=== PATIENT | male | born 1945 | race Caucasian/White ===

== ENCOUNTER 2016-06-23 09:31 | Emergency (ER) | payer MEDICARE, MEDICAID ==
[~2016-06-23] VITALS: Ht 180.3 cm; Wt 2.6 kg
[~2016-06-23 09:31] MED LIST: ALB5IS NEB; AML5T PO; BUDE160A3 INH; Doxycycline Monohydrate PO; ESCI5TAB PO; Ipratropium Bromide NEB; LAC30LQ PO; NOR5T PO; QUET300T14 PO; TAM04C PO
[2016-06-23 10:10] VITALS: BP 159/104
[2016-06-23 10:32] LABS: Urine Bilirubin Negative (Negative); Urine Color Yellow (Yellow); Urine Glucose Normal (Normal); Urine Nitrite Negative (Negative); Urine RBC 178 /hpf (0 - 3); Urine Squamous Epithelial Cell FEW /hpf (<5); Urine Urobilinogen Normal (Negative)
[2016-06-23 10:33] LABS: Urine Blood 2+ /uL (Negative); Urine Ketone 2+ (Negative)
== END 2016-06-23 11:26 | disposition home or self-care (01) ==
LOC: ER 09:31
DX: D29.1 Benign neoplasm of prostate (principal); M19.90 Unspecified osteoarthritis, unspecified site; J44.9 Chronic obstructive pulmonary disease, unspecified; I10 Essential (primary) hypertension; I25.10 Atherosclerotic heart disease of native coronary artery without angina pectoris; Z88.0 Allergy status to penicillin; F17.210 Nicotine dependence, cigarettes, uncomplicated; F12.10 Cannabis abuse, uncomplicated
CPT/HCPCS: 51702; 81001

== ENCOUNTER 2016-06-29 14:47 | Inpatient (IN) | payer MEDICARE, MEDICAID ==
[~2016-06-29] VITALS: Ht 180.3 cm; Wt 83.2 kg
[~2016-06-29 14:47] MED LIST changes: -Doxycycline Monohydrate PO
[2016-06-29 15:30] LABS: Basophils # (auto) 0 uL; Basophils % (auto) 0.2 % (0.0-2.0); Eosinophils # (auto) 0.3 uL; Eosinophils % (auto) 2.2 % (0.0-7.0); Hematocrit 46.9 % (41.0-53.0); Hemoglobin 15.5 g/dL (13.5-17.5); Lymphocytes # (auto) 2.3 uL; Lymphocytes % (auto) 18.2 % (10.0-50.0); Mean Corpuscular Hemoglobin 30.3 pg (28.0-32.0); Mean Corpuscular Volume 91.6 fL (80.0-100.0); Mean Platelet Volume 7.9 fL (7.4-10.4); Monocytes # (auto) 0.5 uL; Monocytes % (auto) 3.9 % (0.0-12.0); Neutrophils # (auto) 9.4 uL; Neutrophils % (auto) 75.5 % (37.0-80.0); Platelet Count (auto) 377 10^3/uL (140-450); Red Cell Distribution Width 15.1 % (11.6-16.0); White Blood Cell 12.5 10^3/uL (4.4-10.8)
[2016-06-29 15:54] LABS: Partial Thromboplastin Time 31.4 sec (22.64-33.71)
[2016-06-29 16:02] LABS: INR 1.28 (0.9-1.15); Prothrombin Time 13.2 sec (9.37-12.3)
[2016-06-29 16:18] LABS: Albumin 3.8 g/dL (3.4-5.0); Anion Gap 11 (5-15); Blood Urea Nitrogen 20 mg/dL (7-18); Calcium 8.5 mg/dL (8.5-10.1); Carbon Dioxide 25 mmol/L (21-32); Chloride 103 mmol/L (98-107); Glucose 105 mg/dL (74-106); Potassium 4.1 mmol/L (3.5-5.1); Sodium 139 mmol/L (136-145)
[2016-06-29 16:20] LABS: BUN/Creatinine Ratio 21.7; GFR African American 105 mL/min; GFR Non-African American 86 mL/min
[2016-06-29 16:28] LABS: Alkaline Phosphatase 98 U/L (45-117); Aspartate Aminotransferase 27 U/L (15-37); Bilirubin, Total 0.6 mg/dL (0.2-1.0); Total Protein 7.3 g/dL (6.4-8.2)
[2016-06-29] MEDS ORDERED: ACETAMINOPHEN 325 MG TAB PO ONE (17:30)
[2016-06-29] MEDS ORDERED: ENOXAPARIN SOD 100 MG/1 ML SYRINGE SC ONE (17:30)
[2016-06-29] MEDS ORDERED: ACETAMINOPHEN 325 MG TAB PO PRN (20:15)
[2016-06-29] MEDS ORDERED: FUROSEMIDE 40 MG/4 ML VIAL IV ONE (20:15)
[2016-06-29] MEDS ORDERED: LORazepam 2MG/ML-1ML VIAL IV PRN (20:15)
[2016-06-29] MEDS ORDERED: methylPREDNISolone SOD SUCC 125 MG/2 ML VL IV ONE (20:15)
[2016-06-29] MEDS ORDERED: LACTULOSE 20Gm/30ML SOLN PO PRN (20:15)
[2016-06-29] MEDS ORDERED: ONDANSETRON HCL 4 MG/2 ML VIAL IV PRN (20:15)
[2016-06-29] MEDS ORDERED: ALBUTEROL SULF 2.5 MG/0.5ML(0.5%) NEB SOLN NEB PRN (20:15)
[2016-06-29] MEDS ORDERED: DOCUSATE SOD 100 MG CAP PO PRN (20:15)
[2016-06-29] MEDS ORDERED: METOCLOPRAMIDE HCL 5MG/ml INJ 2ml VIAL IV PRN (20:15)
[2016-06-29] MEDS ORDERED: ALUM & MAG HYDROX-SIMETH LIQ(MAALOX) 30 ML PO PRN (20:15)
[2016-06-29] MEDS ORDERED: MORPHINE SULF INJ 2 MG/ML SYRINGE 1ML IV PRN (20:15)
[2016-06-29] MEDS ORDERED: hydrALAZINE HCL 20 MG/ML VL IV PRN (20:15)
[2016-06-29] MEDS ORDERED: IBUPROFEN 600 MG TAB PO ONE (20:15)
[2016-06-29] MEDS ORDERED: NITROGLYCERIN 0.4 MG SL TAB SL PRN (20:15)
[2016-06-29 20:44] VITALS: BP 160/92
[2016-06-29] MEDS: MORPHINE SULF INJ 2 MG/ML SYRINGE 1ML IV PRN (20:53)
[2016-06-29] MEDS: TAMSULOSIN HYDROCHLORIDE 0.4 MG CAP PO SCH (21:02)
[2016-06-29] MEDS: CARVEDILOL 3.125 MG TAB PO SCH ×3 (21:02→22:15)
[2016-06-29] MEDS: QUEtiapine FUMARATE 100 MG TAB PO SCH (22:00)
[2016-06-29] MEDS: ENOXAPARIN SOD 80 MG/0.8ML SYRINGE SC SCH (22:00)
[2016-06-29] MEDS: BUDESONIDE FORMOTEROL FUMARATE INH SCH (22:00)
[2016-06-30] MEDS: CARVEDILOL 3.125 MG TAB PO SCH (00:16)
[2016-06-30] MEDS: MORPHINE SULF INJ 2 MG/ML SYRINGE 1ML IV PRN ×2 (03:57→08:13)
[2016-06-30 04:05] LABS: Basophils # (auto) 0 uL; Basophils % (auto) 0.1 % (0.0-2.0); Eosinophils # (auto) 0 uL; Eosinophils % (auto) 0.1 % (0.0-7.0); Hematocrit 46.3 % (41.0-53.0); Hemoglobin 15.4 g/dL (13.5-17.5); Lymphocytes # (auto) 0.9 uL; Lymphocytes % (auto) 11.9 % (10.0-50.0); Mean Corpuscular Hemoglobin 30.6 pg (28.0-32.0); Mean Corpuscular Hgb Conc. 33.3 g/dL (32.0-36.0); Mean Corpuscular Volume 91.9 fL (80.0-100.0); Mean Platelet Volume 8.2 fL (7.4-10.4); Monocytes # (auto) 0 uL; Monocytes % (auto) 0.4 % (0.0-12.0); Neutrophils # (auto) 6.4 uL; Neutrophils % (auto) 87.5 % (37.0-80.0); Platelet Count (auto) 345 10^3/uL (140-450); White Blood Cell 7.3 10^3/uL (4.4-10.8)
[2016-06-30 04:38] LABS: Albumin 3.7 g/dL (3.4-5.0); BUN/Creatinine Ratio 26.5; Calcium 8.5 mg/dL (8.5-10.1); Potassium 4.2 mmol/L (3.5-5.1)
[2016-06-30 04:41] LABS: Bilirubin, Total 0.6 mg/dL (0.2-1.0); Total Protein 7.1 g/dL (6.4-8.2)
[2016-06-30] MEDS: methylPREDNISolone SOD SUCC 40 MG/ML VL IV SCH ×4 (06:13→19:18)
[2016-06-30] MEDS: CITALOPRAM HYDROBR 20 MG TAB PO SCH (10:00)
[2016-06-30] MEDS: amLODIPine BESYLATE 5 MG TAB PO SCH (10:00)
[2016-06-30] MEDS: BUDESONIDE FORMOTEROL FUMARATE INH SCH (10:00)
[2016-06-30] MEDS: ENOXAPARIN SOD 80 MG/0.8ML SYRINGE SC SCH ×2 (10:01→22:09)
[2016-06-30] MEDS ORDERED: IPRATROPIUM BROM 0.5 MG/2.5ML INH SOL NEB PRN ×2 (10:30)
[2016-06-30] MEDS ORDERED: ALBUTEROL SULF 2.5 MG/0.5ML(0.5%) NEB SOLN NEB PRN (10:30)
[2016-06-30] MEDS ORDERED: ONDANSETRON HCL 4 MG/2 ML VIAL ONE (10:48)
[2016-06-30] MEDS: HYDROmorphone HCL 2 MG/ML VL IV PRN ×3 (10:48→20:27)
[2016-06-30] MEDS: ALBUTEROL SULF 2.5 MG/0.5ML(0.5%) NEB SOLN NEB SCH (18:00)
[2016-06-30 18:21] VITALS: BP 146/98
[2016-06-30] MEDS: TAMSULOSIN HYDROCHLORIDE 0.4 MG CAP PO SCH (19:18)
[2016-06-30 21:34] VITALS: BP 143/82
[2016-06-30] MEDS: BUDESONIDE (INHALATION) 0.5 MG/2 ML NEB NEB SCH (22:00)
[2016-06-30] MEDS: QUEtiapine FUMARATE 100 MG TAB PO SCH (22:10)
[2016-07-01] MEDS: methylPREDNISolone SOD SUCC 40 MG/ML VL IV SCH ×2 (00:09→06:01)
[2016-07-01] MEDS: HYDROmorphone HCL 2 MG/ML VL IV PRN ×2 (04:29→08:51)
[2016-07-01 05:00] VITALS: BP 142/81
[2016-07-01 08:00] VITALS: BP 150/93
[2016-07-01] MEDS ORDERED: MORPHINE SULF INJ 2 MG/ML SYRINGE 1ML IV PRN (08:00)
[2016-07-01] MEDS ORDERED: NITROGLYCERIN 0.4 MG SL TAB SL PRN ×2 (08:00)
[2016-07-01] MEDS: CITALOPRAM HYDROBR 20 MG TAB PO SCH (08:51)
[2016-07-01] MEDS: ENOXAPARIN SOD 80 MG/0.8ML SYRINGE SC SCH (08:52)
[2016-07-01] MEDS: amLODIPine BESYLATE 5 MG TAB PO SCH (08:52)
[2016-07-01] MEDS: CARVEDILOL 3.125 MG TAB PO SCH ×2 (08:53→22:16)
[2016-07-01] MEDS ORDERED: amLODIPine BESYLATE 5 MG TAB PO ONE (10:30)
[2016-07-01] MEDS ORDERED: HYDROcodone-ACET 5/325MG TAB PO PRN (10:30)
[2016-07-01] MEDS: APIXABAN 5 MG TAB PO SCH ×2 (11:41→22:16)
[2016-07-01 11:51] VITALS: BP 148/80
[2016-07-01] MEDS: BUDESONIDE (INHALATION) 0.5 MG/2 ML NEB NEB SCH ×2 (12:08→19:20)
[2016-07-01] MEDS: ALBUTEROL SULF 2.5 MG/0.5ML(0.5%) NEB SOLN NEB SCH ×3 (12:08→19:19)
[2016-07-01] MEDS: HYDROcodone-ACET 10/325MG TAB PO PRN ×2 (13:06→18:23)
[2016-07-01] MEDS ORDERED: SODIUM CHLOR 0.9% PF (SALINE LOCK) 10ML VIAL IV SCH (14:00)
[2016-07-01 16:44] VITALS: BP 153/89
[2016-07-01] MEDS: TAMSULOSIN HYDROCHLORIDE 0.4 MG CAP PO SCH (18:23)
[2016-07-01 19:38] LABS: Basophils # (auto) 0 uL; Eosinophils # (auto) 0 uL; Hematocrit 44.4 % (41.0-53.0); Hemoglobin 14.6 g/dL (13.5-17.5); Lymphocytes # (auto) 1.9 uL; Lymphocytes % (auto) 12.1 % (10.0-50.0); Mean Corpuscular Hemoglobin 30.1 pg (28.0-32.0); Mean Corpuscular Volume 91.5 fL (80.0-100.0); Mean Platelet Volume 8.5 fL (7.4-10.4); Monocytes # (auto) 0.8 uL; Neutrophils # (auto) 13.3 uL; Neutrophils % (auto) 82.9 % (37.0-80.0); Platelet Count (auto) 375 10^3/uL (140-450); Red Cell Distribution Width 14.9 % (11.6-16.0)
[2016-07-01 20:04] LABS: Albumin 3.7 g/dL (3.4-5.0); Calcium 8.5 mg/dL (8.5-10.1); Potassium 4.4 mmol/L (3.5-5.1)
[2016-07-01 20:07] LABS: Bilirubin, Total 0.5 mg/dL (0.2-1.0)
[2016-07-01 21:33] VITALS: BP 142/86
[2016-07-01] MEDS: QUEtiapine FUMARATE 100 MG TAB PO SCH (22:16)
[2016-07-02 04:34] VITALS: BP 148/75
[2016-07-02] MEDS: HYDROcodone-ACET 10/325MG TAB PO PRN ×3 (05:45→18:31)
[2016-07-02] MEDS: ALBUTEROL SULF 2.5 MG/0.5ML(0.5%) NEB SOLN NEB SCH ×3 (06:42→19:25)
[2016-07-02] MEDS: BUDESONIDE (INHALATION) 0.5 MG/2 ML NEB NEB SCH ×2 (06:43→19:26)
[2016-07-02 09:42] VITALS: BP 144/78
[2016-07-02] MEDS: predniSONE 20 MG TAB PO SCH (09:57)
[2016-07-02] MEDS: CITALOPRAM HYDROBR 20 MG TAB PO SCH (09:57)
[2016-07-02] MEDS: APIXABAN 5 MG TAB PO SCH ×2 (09:57→22:07)
[2016-07-02] MEDS: CARVEDILOL 3.125 MG TAB PO SCH ×2 (09:58→22:07)
[2016-07-02] MEDS: amLODIPine BESYLATE 5 MG TAB PO SCH (09:58)
[2016-07-02] MEDS ORDERED: LEVOFLOXACIN 500MG 100 ML IV ONE (11:15)
[2016-07-02 12:51] VITALS: BP 138/92
[2016-07-02] MEDS ORDERED: LEVOFLOXACIN 500 MG TAB PO ONE (14:15)
[2016-07-02 16:41] VITALS: BP 150/87
[2016-07-02] MEDS: TAMSULOSIN HYDROCHLORIDE 0.4 MG CAP PO SCH (17:55)
[2016-07-02 18:00] VITALS: BP 159/74
[2016-07-02 21:16] VITALS: BP 150/87
[2016-07-02] MEDS: QUEtiapine FUMARATE 100 MG TAB PO SCH (22:06)
[2016-07-03] MEDS: HYDROcodone-ACET 10/325MG TAB PO PRN ×2 (03:04→09:06)
[2016-07-03 05:12] VITALS: BP 131/78
[2016-07-03 05:34] LABS: Basophils # (auto) 0 uL; Basophils % (auto) 0.2 % (0.0-2.0); Eosinophils # (auto) 0.1 uL; Eosinophils % (auto) 0.6 % (0.0-7.0); Hematocrit 42.5 % (41.0-53.0); Hemoglobin 13.8 g/dL (13.5-17.5); Lymphocytes # (auto) 2.9 uL; Lymphocytes % (auto) 25.7 % (10.0-50.0); Mean Corpuscular Hemoglobin 30.3 pg (28.0-32.0); Mean Corpuscular Hgb Conc. 32.4 g/dL (32.0-36.0); Mean Corpuscular Volume 93.6 fL (80.0-100.0); Mean Platelet Volume 8.2 fL (7.4-10.4); Monocytes % (auto) 9.1 % (0.0-12.0); Neutrophils # (auto) 7.2 uL; Neutrophils % (auto) 64.4 % (37.0-80.0); Platelet Count (auto) 219 10^3/uL (140-450); Red Cell Distribution Width 15.1 % (11.6-16.0); White Blood Cell 11.3 10^3/uL (4.4-10.8)
[2016-07-03 05:42] LABS: Albumin 2.9 g/dL (3.4-5.0); BUN/Creatinine Ratio 32.8; Calcium 8.2 mg/dL (8.5-10.1); Potassium 4.4 mmol/L (3.5-5.1)
[2016-07-03 05:45] LABS: Bilirubin, Total 0.3 mg/dL (0.2-1.0); Total Protein 5.8 g/dL (6.4-8.2)
[2016-07-03] MEDS: ALBUTEROL SULF 2.5 MG/0.5ML(0.5%) NEB SOLN NEB SCH ×3 (06:00→10:49)
[2016-07-03] MEDS: BUDESONIDE (INHALATION) 0.5 MG/2 ML NEB NEB SCH (06:00)
[2016-07-03 07:38] VITALS: BP 114/70
[2016-07-03 07:45] VITALS: BP 114/70
[2016-07-03] MEDS: predniSONE 20 MG TAB PO SCH (09:07)
[2016-07-03] MEDS: CITALOPRAM HYDROBR 20 MG TAB PO SCH (09:08)
[2016-07-03] MEDS: APIXABAN 5 MG TAB PO SCH (09:09)
[2016-07-03] MEDS: amLODIPine BESYLATE 5 MG TAB PO SCH (09:12)
[2016-07-03] MEDS: CARVEDILOL 3.125 MG TAB PO SCH (09:12)
[2016-07-03] MEDS ORDERED: LEVOFLOXACIN 500 MG TAB PO SCH (10:00)
[2016-07-03] MEDS ORDERED: LEVOFLOXACIN 500MG 100 ML IV SCH (10:00)
[2016-07-03 11:58] VITALS: BP 145/90
[2016-07-03 12:54] VITALS: BP 145/90
[2016-07-08] MEDS ORDERED: APIXABAN 5 MG TAB PO SCH (10:00)
== END 2016-07-03 15:10 | disposition home or self-care (01) | DRG 140 ==
LOC: ER 14:47 → EDBD 14:47 → TELE 14:48 → TELE-EAST 06-30 17:47
PROVIDERS: ADMIT Internal Medicine; ATTEND Internal Medicine
DX: J44.1 Chronic obstructive pulmonary disease with (acute) exacerbation (principal); J96.20 Acute and chronic respiratory failure, unspecified whether with hypoxia or hypercapnia; I26.99 Other pulmonary embolism without acute cor pulmonale; M19.90 Unspecified osteoarthritis, unspecified site; N40.0 Benign prostatic hyperplasia without lower urinary tract symptoms; F17.210 Nicotine dependence, cigarettes, uncomplicated; G89.29 Other chronic pain; I15.8 Other secondary hypertension; I25.10 Atherosclerotic heart disease of native coronary artery without angina pectoris; I25.2 Old myocardial infarction; Z79.01 Long term (current) use of anticoagulants; Z86.711 Personal history of pulmonary embolism; Z91.19 Patient's noncompliance with other medical treatment and regimen; Z88.0 Allergy status to penicillin; Z90.49 Acquired absence of other specified parts of digestive tract
CPT/HCPCS: 36415; 71020; 80053; 84484; 85025; 85379; 85610; 85730; 87081; 93005; 94640; 96372; 96374; 96375; J1956; J2405

== ENCOUNTER 2016-07-05 12:37 | Emergency (ER) | payer MEDICARE, MEDICAID ==
[~2016-07-05] VITALS: Ht 180.3 cm; Wt 80.7 kg
[2016-07-05 13:26] LABS: Basophils # (auto) 0 uL; Basophils % (auto) 0.2 % (0.0-2.0); Eosinophils # (auto) 0.4 uL; Eosinophils % (auto) 2.3 % (0.0-7.0); Hematocrit 46.1 % (41.0-53.0); Hemoglobin 15.4 g/dL (13.5-17.5); Lymphocytes # (auto) 2.6 uL; Lymphocytes % (auto) 16.7 % (10.0-50.0); Mean Corpuscular Hemoglobin 30.4 pg (28.0-32.0); Mean Corpuscular Hgb Conc. 33.3 g/dL (32.0-36.0); Mean Corpuscular Volume 91.3 fL (80.0-100.0); Monocytes # (auto) 0.6 uL; Monocytes % (auto) 3.9 % (0.0-12.0); Neutrophils % (auto) 76.9 % (37.0-80.0); Platelet Count (auto) 362 10^3/uL (140-450); White Blood Cell 15.5 10^3/uL (4.4-10.8)
[2016-07-05 13:57] LABS: Albumin 3.9 g/dL (3.4-5.0); Alkaline Phosphatase 90 U/L (45-117); Anion Gap 12 (5-15); Aspartate Aminotransferase 25 U/L (15-37); BUN/Creatinine Ratio 34.7; Bilirubin, Total 0.4 mg/dL (0.2-1.0); Blood Urea Nitrogen 26 mg/dL (7-18); Calcium 9.1 mg/dL (8.5-10.1); Carbon Dioxide 27 mmol/L (21-32); Chloride 103 mmol/L (98-107); GFR African American 132 mL/min; GFR Non-African American 109 mL/min; Glucose 111 mg/dL (74-106); Potassium 4.6 mmol/L (3.5-5.1); Sodium 142 mmol/L (136-145)
[2016-07-05] MEDS ORDERED: PROMETHAZINE HCL 25 MG/ML 1ML IV ONE (15:30)
[2016-07-05] MEDS ORDERED: NALBUPHINE HCL 10 MG/1ml INJECTION IV ONE (15:30)
[2016-07-05] MEDS ORDERED: ALBUTEROL SULF 2.5 MG/0.5ML(0.5%) NEB SOLN NEB ONE (16:45)
[2016-07-05] MEDS ORDERED: IPRATROPIUM BROM 0.5 MG/2.5ML INH SOL NEB ONE (16:45)
[2016-07-05] MEDS ORDERED: TAMSULOSIN HYDROCHLORIDE 0.4 MG CAP PO ONE (17:00)
[2016-07-05 17:02] VITALS: BP 109/73
== END 2016-07-05 17:13 | disposition home or self-care (01) ==
LOC: ER 12:41
DX: J98.01 Acute bronchospasm (principal); I25.810 Atherosclerosis of coronary artery bypass graft(s) without angina pectoris; G89.29 Other chronic pain; N40.1 Benign prostatic hyperplasia with lower urinary tract symptoms; N13.8 Other obstructive and reflux uropathy; M19.90 Unspecified osteoarthritis, unspecified site; E78.5 Hyperlipidemia, unspecified; I10 Essential (primary) hypertension; F17.210 Nicotine dependence, cigarettes, uncomplicated; F12.10 Cannabis abuse, uncomplicated; Z98.62 Peripheral vascular angioplasty status; J44.9 Chronic obstructive pulmonary disease, unspecified; F41.9 Anxiety disorder, unspecified; F32.9 Major depressive disorder, single episode, unspecified; Z90.49 Acquired absence of other specified parts of digestive tract; Z90.89 Acquired absence of other organs
CPT/HCPCS: 36415; 71010; 80053; 84484; 85025; 85379; 93005; 94640; 94761; 96374; 96375; 99285; J2300; J2550

== ENCOUNTER 2016-07-07 14:56 | Emergency (ER) | payer MEDICARE, MEDICAID ==
[~2016-07-07] VITALS: Ht 167.6 cm; Wt 77.1 kg
[2016-07-07 15:00] VITALS: BP 130/90
[2016-07-07 15:46] LABS: Eosinophils # (auto) 0.1 uL; SUSPECT VIEW TRANSMISSION
[2016-07-07 15:53] LABS: Albumin 3.4 g/dL (3.4-5.0); Anion Gap 6 (5-15); Aspartate Aminotransferase 21 U/L (15-37); BUN/Creatinine Ratio 30.5; Blood Urea Nitrogen 25 mg/dL (7-18); Calcium 8.3 mg/dL (8.5-10.1); Carbon Dioxide 25 mmol/L (21-32); Chloride 107 mmol/L (98-107); GFR African American 119 mL/min; GFR Non-African American 99 mL/min; Glucose 96 mg/dL (74-106); Potassium 4.3 mmol/L (3.5-5.1); Sodium 138 mmol/L (136-145)
[2016-07-07 15:56] LABS: Alkaline Phosphatase 81 U/L (45-117); Bilirubin, Total 0.9 mg/dL (0.2-1.0); Total Protein 6.5 g/dL (6.4-8.2)
[2016-07-07 16:26] LABS: Basophils # (auto) 0 uL; Basophils % (auto) 0.1 % (0.0-2.0); Eosinophils % (auto) 0.4 % (0.0-7.0); Hematocrit 43.1 % (41.0-53.0); Hemoglobin 14.6 g/dL (13.5-17.5); Lymphocytes # (auto) 0.8 uL; Lymphocytes % (auto) 4.6 % (10.0-50.0); Mean Corpuscular Hemoglobin 30.9 pg (28.0-32.0); Mean Platelet Volume 8.5 fL (7.4-10.4); Monocytes # (auto) 0.7 uL; Neutrophils # (auto) 15.5 uL; Neutrophils % (auto) 90.9 % (37.0-80.0); Platelet Count (auto) 305 10^3/uL (140-450)
== END 2016-07-07 20:00 | disposition left against medical advice (07) ==
LOC: EDSEX 14:56 → EDBD 14:56 → ER 14:56
DX: R06.02 Shortness of breath (principal); J45.909 Unspecified asthma, uncomplicated; Z53.21 Procedure and treatment not carried out due to patient leaving prior to being seen by health care provider
CPT/HCPCS: 36415; 80053; 84484; 85025; 93005

== ENCOUNTER 2016-07-07 20:27 | Observation (INO) | payer MEDICARE, MEDICAID ==
[~2016-07-07] VITALS: Ht 180.3 cm; Wt 80.7 kg
[2016-07-07 21:34] LABS: Basophils # (auto) 0.1 uL; Basophils % (auto) 0.5 % (0.0-2.0); Eosinophils # (auto) 0.1 uL; Eosinophils % (auto) 0.5 % (0.0-7.0); Hematocrit 41.6 % (41.0-53.0); Hemoglobin 14.1 g/dL (13.5-17.5); Lymphocytes # (auto) 0.7 uL; Lymphocytes % (auto) 4.4 % (10.0-50.0); Mean Corpuscular Hemoglobin 30.5 pg (28.0-32.0); Mean Corpuscular Hgb Conc. 33.8 g/dL (32.0-36.0); Mean Corpuscular Volume 90.5 fL (80.0-100.0); Monocytes # (auto) 0.5 uL; Monocytes % (auto) 3.3 % (0.0-12.0); Neutrophils # (auto) 14.6 uL; Neutrophils % (auto) 91.3 % (37.0-80.0); Platelet Count (auto) 335 10^3/uL (140-450)
[2016-07-07 21:52] LABS: Albumin 4.1 g/dL (3.4-5.0); Anion Gap 9 (5-15); Aspartate Aminotransferase 21 U/L (15-37); Blood Urea Nitrogen 27 mg/dL (7-18); Calcium 8.5 mg/dL (8.5-10.1); Carbon Dioxide 28 mmol/L (21-32); Chloride 104 mmol/L (98-107); GFR African American 107 mL/min; GFR Non-African American 89 mL/min; Glucose 100 mg/dL (74-106); Potassium 4.3 mmol/L (3.5-5.1); Sodium 141 mmol/L (136-145)
[2016-07-07 21:57] LABS: Alkaline Phosphatase 84 U/L (45-117); Bilirubin, Total 1.2 mg/dL (0.2-1.0); Total Protein 6.9 g/dL (6.4-8.2)
[2016-07-08] MEDS ORDERED: IPRATROPIUM BROM 0.5 MG/2.5ML INH SOL NEB ONE (03:15)
[2016-07-08] MEDS ORDERED: ALBUTEROL SULF 2.5 MG/0.5ML(0.5%) NEB SOLN NEB ONE (03:15)
[2016-07-08 07:34] LABS: Urine Bilirubin Negative (Negative); Urine Color Yellow (Yellow); Urine Glucose Normal (Normal); Urine Nitrite Negative (Negative); Urine RBC 94 /hpf (0 - 3); Urine Squamous Epithelial Cell FEW /hpf (<5); Urine Urobilinogen Normal (Negative)
[2016-07-08 07:54] LABS: Urine Blood 2+ /uL (Negative); Urine Ketone 1+ (Negative)
[2016-07-08] MEDS ORDERED: SODIUM CHLORIDE 0.9% 1,000 ML IV ONE (08:00)
[2016-07-08] MEDS ORDERED: HYDROcodone-ACET 10/325MG TAB PO ONE (08:00)
[2016-07-08] MEDS ORDERED: TAMSULOSIN HYDROCHLORIDE 0.4 MG CAP PO ONE ×2 (08:06→08:15)
[2016-07-08 09:33] VITALS: BP 149/89
== END 2016-07-08 09:08 | disposition home or self-care (01) | DRG 192 ==
LOC: ER 20:54 → OVERFLOW 07-08 03:14 → ER 07-08 09:08
PROVIDERS: ADMIT Emergency Medicine; ATTEND Emergency Medicine
DX: J44.1 Chronic obstructive pulmonary disease with (acute) exacerbation (principal); N40.0 Benign prostatic hyperplasia without lower urinary tract symptoms; R31.9 Hematuria, unspecified; M54.5 Low back pain; G89.29 Other chronic pain; F41.9 Anxiety disorder, unspecified; I25.10 Atherosclerotic heart disease of native coronary artery without angina pectoris; F17.210 Nicotine dependence, cigarettes, uncomplicated
CPT/HCPCS: 36415; 71020; 80053; 81001; 84484; 85025; 93005; 94640; 96360; 99285; G0378; J7030